=== PATIENT | male | born 1985 | race American Indian/Alaskan Native ===

== ENCOUNTER 2024-09-04 10:08 | Inpatient (IN) | payer SELFPAY ==
[~2024-09-04] VITALS: Ht 177.8 cm; Wt 87.8 kg
--- NOTE | ~2024-09-04 | EKG ---
[facility] [address] [facility] [place], [place] [address] Draft EK completed, results pending confirmation PATIENT NAME: ANDREWCHARLOTTEGAMALIEL MORROW Electrocardiogram DATE OF : 85 PHYSICIAN: PRELIMINARY REPORT #: [id number] REPORT IS CONFIDENTIAL AND NOT TO BE RELEASED WITHOUT AUTHORIZATION
[2024-09-04] MEDS ORDERED: SODIUM CHLORIDE 0.9% 1,000 ML IV ONE (11:00)
[2024-09-04 11:02] LABS: BASOPHILS 0.6 % (0.2-1.2); EOSINOPHILS 0 % (0.8-7.0); HEMATOCRIT 44.7 % (40.1-51.0); HEMOGLOBIN 15.9 g/dL (13.7-17.5); MCH 36.2 PG (25.7-32.2); MCHC 35.6 g/dL (32.3-36.5); MCV 101.8 fL (79.0-92.2); NEUTROPHILS 85.5 % (34.0-67.9); PLATELET COUNT 112 K/uL (163-337); RBC 4.39 M/uL (4.63-6.08)
[2024-09-04 11:11] LABS: ACETAMINOPHEN 0 ug/mL (10-30); ALBUMIN 4.2 g/dL (3.4-5.0); ALBUMIN/GLOBULIN RATIO 1.17 (1.1-2.4); ALCOHOL, MEDICAL 36 ng/dL (<3); ALKALINE PHOSPHATASE 172 U/L (46-116); ALT (SGPT) 167 U/L (14-59); ANION GAP 17.8 (7-21); AST (SGOT) 329 U/L (15-37); CALCIUM 8.8 mg/dL (8.5-10.1); CARBON DIOXIDE 23 mmol/L (21-32); CHLORIDE 95 mmol/L (98-107); CREATININE, SERUM 1.11 mg/dL (0.70-1.30); GLOMERULAR FILTRATION RATE,EST 87 mL/min (>60); POTASSIUM 3.8 mmol/L (3.5-5.1); PROTEIN, TOTAL 7.8 g/dL (6.4-8.2); UREA NITROGEN 3 mg/dL (7-18)
[2024-09-04 11:12] LABS: SALICYLATE < 0.2 mg/dL (2.8-20.0)
[2024-09-04] MEDS ORDERED: LORazepam 2 MG/ML VIAL IV ONE (11:45)
[2024-09-04 14:35] LABS: BILIRUBIN, URINE NEGATIVE (negative); BLOOD/HGB, URINE TRACE-I (Negative); KETONE, URINE SMALL (Negative); LEUK ESTERASE, URINE NEGATIVE (negative); NITRITE, URINE NEGATIVE (negative); PH, URINE 7.5 (5-7)
[2024-09-04] MEDS ORDERED: FOLIC ACID 1 MG/0.2 ML ML IV SCH (14:36)
[2024-09-04] MEDS ORDERED: THIAMINE HCL 200 MG/2 ML VIAL IV SCH (14:37)
[2024-09-04 14:41] LABS: BACTERIA, URINE NONE SEEN /hpf (negative); CASTS, URINE NONE SEEN \\lpf; COLLECTION TYPE, URINE CLEAN CATCH; CRYSTALS, URINE NONE SEEN (0-1+); EPITHELIAL CELLS, URINE SQUAMOUS 1+ /lpf (0-1+); REFLEX CULTURE, URINE No (No)
[2024-09-04] MEDS ORDERED: diazePAM 10 MG/2 ML SYR IV PRN ×2 (14:45→16:45)
[2024-09-04] MEDS ORDERED: LORazepam 1 MG TAB PO PRN (14:45)
[2024-09-04] MEDS ORDERED: CHLORDIAZEPOXIDE 25 MG CAP PO ONE (14:45)
[2024-09-04 14:49] LABS: AMPHETAMINES, URINE NEGATIVE (NEGATIVE); BARBITURATES, URINE NEGATIVE (NEGATIVE); BENZODIAZEPINE, URINE NEGATIVE (NEGATIVE); BUPRENORPHINE, URINE NEGATIVE (NEGATIVE); CANNABINOID, URINE NEGATIVE (NEGATIVE); COCAINE, URINE NEGATIVE (NEGATIVE); ECSTASY, URINE NEGATIVE (NEGATIVE); METHADONE, URINE NEGATIVE (NEGATIVE); OPIATES, URINE NEGATIVE (NEGATIVE); OXYCODONE, URINE NEGATIVE (NEGATIVE); PHENCYCLIDINE, URINE NEGATIVE (NEGATIVE)
[2024-09-04 15:01] LABS: FENTANYL, URINE NEGATIVE (NEGATIVE)
[2024-09-04] MEDS ORDERED: PANTOPRAZOLE SODIUM 40 MG TABEC PO SCH (16:28)
[2024-09-04] MEDS ORDERED: PROCHLORPERAZINE EDISYLATE 10 MG/2 ML VIAL IV PRN (16:30)
[2024-09-04] MEDS ORDERED: ACETAMINOPHEN 325 MG TAB PO PRN (16:30)
[2024-09-04] MEDS ORDERED: LACTATED RINGER'S 1,000 ML IV SCH (16:30)
[2024-09-04] MEDS ORDERED: ondansetron HCL 4 MG/2 ML VIAL IV PRN (16:30)
--- NOTE | 2024-09-04 16:35 | EKG ---
[facility] [address] [place], [place] [address] \T\ T wave abnormality, consider anterior ischemia Abnormal ECG QRS axis shifted right ST depressed in lateral leads Confirmed by Dread Rowe MD () on 09/04/2024 4:34:51 PM Electronically Signed By: DREAD ROWE MD 09/04/24 1635 PATIENT NAME: CHARLOTTE MORALES ODALYS Electrocardiogram DATE OF : 85 PHYSICIAN: DREAD ROWE MD REPORT #: [id number] REPORT IS CONFIDENTIAL AND NOT TO BE RELEASED WITHOUT AUTHORIZATION
[2024-09-04] MEDS ORDERED: IBUPROFEN 600 MG TAB PO PRN (16:45)
[2024-09-04] MEDS ORDERED: diazePAM 5 MG TAB PO PRN (16:45)
[2024-09-04 17:11] VITALS: BP 152/98
[2024-09-04 18:00] VITALS: BP 152/96
[2024-09-04] MEDS ORDERED: LORazepam 2 MG TABLET PO SCH (18:00)
[2024-09-04 19:00] VITALS: BP 132/86
[2024-09-04 20:00] VITALS: BP 147/97
[2024-09-04] MEDS ORDERED: diazePAM 10 MG/2 ML SYR IV SCH (20:00)
[2024-09-05 00:01] VITALS: BP 130/94
[2024-09-05 05:15] VITALS: BP 131/92
[2024-09-05 05:18] LABS: BASOPHILS 0.7 % (0.2-1.2); EOSINOPHILS 1.4 % (0.8-7.0); HEMATOCRIT 42.4 % (40.1-51.0); HEMOGLOBIN 14.8 g/dL (13.7-17.5); LYMPHOCYTES 16.3 % (21.8-53.1); MCH 35.7 PG (25.7-32.2); MCHC 34.9 g/dL (32.3-36.5); MCV 102.4 fL (79.0-92.2); MONOCYTES 9.1 % (5.3-12.2); PLATELET COUNT 82 K/uL (163-337); RBC 4.14 M/uL (4.63-6.08)
[2024-09-05 05:40] LABS: ALBUMIN 3.4 g/dL (3.4-5.0); ALBUMIN/GLOBULIN RATIO 0.97 (1.1-2.4); ANION GAP 11.2 (7-21); BILIRUBIN, TOTAL 3.2 mg/dL (0.2-1.0); BUN/CREATININE RATIO 3.57 (6.0-28.6); CALCIUM 8.4 mg/dL (8.5-10.1); CREATININE, SERUM 0.84 mg/dL (0.70-1.30); MAGNESIUM 2.2 mg/dL (1.8-2.4); PHOSPHORUS, INORGANIC 3.3 mg/dL (2.5-4.9); POTASSIUM 3.2 mmol/L (3.5-5.1); PROTEIN, TOTAL 6.9 g/dL (6.4-8.2)
[2024-09-05 06:00] VITALS: BP 137/101
[2024-09-05] MEDS ORDERED: MULTIVITAMINS THERAPEUTIC 1 EA TAB PO SCH (08:00)
[2024-09-05 08:33] VITALS: BP 154/104
[2024-09-05] MEDS ORDERED: POTASSIUM CHLORIDE 40 MEQ,LIDOCAINE HCL 1% 40 MG in DEXTROSE 5% 250 ML IV ONE (09:00)
[2024-09-05] MEDS ORDERED: CHLORDIAZEPOXIDE 25 MG CAP PO ONE (09:30)
[2024-09-05 11:31] VITALS: BP 142/108
[2024-09-05] MEDS ORDERED: PHARMACY RENAL DOSE ADJUSTMENT 1 DOSE MISC PO SCH (12:00)
[2024-09-05] MEDS ORDERED: CHLORDIAZEPOXID25 MG PO (13:44)
[2024-09-06] MEDS ORDERED: THIAMINE HCL 100 MG TAB PO SCH (08:00)
[2024-09-06] MEDS ORDERED: FOLIC ACID 1 MG TAB PO SCH (08:00)
== END 2024-09-05 14:15 | disposition home or self-care (01) | DRG 897 ==
LOC: ED 10:08 → CCU 16:40
PROVIDERS: Emergency Medicine; ADMIT Family Medicine; ATTEND Family Medicine
PROC: HZ2ZZZZ Detoxification Services for Substance Abuse Treatment (ICD-10-PCS; principal; 2024-09-04)
DX: F10.130 Alcohol abuse with withdrawal, uncomplicated (principal); E87.1 Hypo-osmolality and hyponatremia; G40.89 Other seizures; I10 Essential (primary) hypertension; S00.532A Contusion of oral cavity, initial encounter; K70.9 Alcoholic liver disease, unspecified; Y90.1 Blood alcohol level of 20-39 mg/100 ml; D69.6 Thrombocytopenia, unspecified; M54.9 Dorsalgia, unspecified; Z98.890 Other specified postprocedural states; Z88.2 Allergy status to sulfonamides; Z81.1 Family history of alcohol abuse and dependence; X58.XXXA Exposure to other specified factors, initial encounter; Z79.899 Other long term (current) drug therapy
CPT/HCPCS: 36415; 51798; 70450; 71045; 80053; 80307; 81001; 83605; 83735; 84100; 85025; 93005; 93010; 96361; 96374; 96375; 99285-25; A9270; G0480; J2060; J3411; J3480; J3490; J7030; J7060; J7121